=== PATIENT | female | born 1985 | race Caucasian/White ===

== ENCOUNTER 2017-06-27 23:33 | Outpatient (CLI) | payer BC ==
[~2017-06-27] VITALS: Ht 154.9 cm; Wt 64.8 kg
[2017-06-27 23:51] VITALS: BP 134/83
[2017-06-28] MEDS ORDERED: PRENATAL TABLE1 EAC3 PO (00:17)
[2017-06-28 03:51] VITALS: BP 123/84
== END 2017-06-28 04:40 | disposition home or self-care (01) ==
LOC: LDRP-OP 23:33 → 2WEST 23:34
DX: O47.1 False labor at or after 37 completed weeks of gestation (principal); Z3A.40 40 weeks gestation of pregnancy
CPT/HCPCS: 59025; G0378

== ENCOUNTER 2017-07-01 22:16 | Inpatient (IN) | payer BC ==
[~2017-07-01] VITALS: Ht 154.9 cm; Wt 66.0 kg
[~2017-07-01 22:16] MED LIST: PRENATAL TABLE1 EAC3 PO
[2017-07-01 22:38] VITALS: BP 130/83
[2017-07-02] VITALS (7 sets, daily range): BP systolic 105–133; BP diastolic 57–81
[2017-07-02 01:20] LABS: BASOPHIL COUNT 0.1 K/uL (0-0.1); EOSINOPHIL (%) 0.4 % (0-5); EOSINOPHIL COUNT 0.1 K/uL (0-0.3); HEMATOCRIT 40.5 % (36.0-46.0); IMMATURE GRANULOCYTE (%) 1.4 % (0.0-0.7); IMMATURE GRANULOCYTE COUNT 0.3 K/uL; INSTRUMENT ABS NEUTROPHIL CT 17.1 K/uL; MCH 32.8 PG (29.0-34.0); MCHC 34.6 G/DL (30.0-36.0); MCV 94.8 FL (83-99); MONOCYTE (%) 3.8 % (3-12); MONOCYTE COUNT 0.8 K/uL (0-0.8); NEUTROPHIL (%) 76.2 % (45-76); NEUTROPHIL COUNT 17.1 K/uL (1.8-6.4); PLATELET COUNT 216 K/uL (156-360); RBC DIS.WIDTH-CV 12.1 % (11.8-14.6); RBC DIS.WIDTH-SD 41.8 % (39-53); RED BLOOD COUNT 4.27 M/uL (3.80-5.20); WHITE BLOOD COUNT 22.4 K/uL (4.1-10.2)
[2017-07-02 13:02] LABS: EOSINOPHIL (%) 0 % (0-5); HEMATOCRIT 32.1 % (36.0-46.0); IMMATURE GRANULOCYTE (%) 0.6 % (0.0-0.7); IMMATURE GRANULOCYTE COUNT 0.1 K/uL; INSTRUMENT ABS NEUTROPHIL CT 19.3 K/uL; LYMPHOCYTE COUNT 1.7 K/uL (1.0-2.8); MCH 32.8 PG (29.0-34.0); MCHC 34.6 G/DL (30.0-36.0); MEAN PLAT.VOLUME 10.3 uM^3 (9.5-12.4); MONOCYTE (%) 4.5 % (3-12); NEUTROPHIL (%) 87.2 % (45-76); NEUTROPHIL COUNT 19.3 K/uL (1.8-6.4); PLATELET COUNT 178 K/uL (156-360); RBC DIS.WIDTH-CV 12.2 % (11.8-14.6); RBC DIS.WIDTH-SD 42.3 % (39-53); WHITE BLOOD COUNT 22.2 K/uL (4.1-10.2)
[2017-07-02 13:04] LABS: RED BLOOD COUNT 3.38 M/uL (3.80-5.20)
[2017-07-03 07:18] LABS: EOSINOPHIL (%) 0.3 % (0-5); HEMATOCRIT 29.8 % (36.0-46.0); IMMATURE GRANULOCYTE (%) 0.5 % (0.0-0.7); IMMATURE GRANULOCYTE COUNT 0.1 K/uL; INSTRUMENT ABS NEUTROPHIL CT 10.8 K/uL; LYMPHOCYTE COUNT 2.5 K/uL (1.0-2.8); MCH 33.6 PG (29.0-34.0); MCHC 34.2 G/DL (30.0-36.0); MEAN PLAT.VOLUME 10.3 uM^3 (9.5-12.4); MONOCYTE (%) 4.5 % (3-12); MONOCYTE COUNT 0.6 K/uL (0-0.8); NEUTROPHIL (%) 76.6 % (45-76); NEUTROPHIL COUNT 10.8 K/uL (1.8-6.4); PLATELET COUNT 151 K/uL (156-360); RBC DIS.WIDTH-CV 12.4 % (11.8-14.6); RBC DIS.WIDTH-SD 43.9 % (39-53); RED BLOOD COUNT 3.04 M/uL (3.80-5.20); WHITE BLOOD COUNT 14.1 K/uL (4.1-10.2)
[2017-07-03 07:19] VITALS: BP 131/65
[2017-07-03 16:24] VITALS: BP 127/69
[2017-07-03 19:00] VITALS: BP 143/82
[2017-07-03 23:00] VITALS: BP 124/73
[2017-07-04 02:21] VITALS: BP 122/66
[2017-07-04] MEDS ORDERED: ENDOCET 5-3251 EACH PO (08:55)
[2017-07-04] MEDS ORDERED: IBUPROFEN800 MG PO (08:55)
[2017-07-04 22:24] VITALS: BP 122/71
[2017-07-05 07:38] VITALS: BP 124/81
== END 2017-07-05 11:27 | disposition home or self-care (01) | DRG 765 ==
LOC: LDRP-OP 22:16 → 2WEST 22:17 → LDRP-OP 07-28 04:51
PROVIDERS: Advanced Practice Midwife; Obstetrics & Gynecology Obstetrics
PROC: 10D00Z1 Extraction of Products of Conception, Low, Open Approach (ICD-10-PCS; principal; 2017-07-02)
DX: O65.4 Obstructed labor due to fetopelvic disproportion, unspecified (principal); O99.02 Anemia complicating childbirth; D62 Acute posthemorrhagic anemia; O48.0 Post-term pregnancy; O63.1 Prolonged second stage (of labor); O69.81X0 Labor and delivery complicated by cord around neck, without compression, not applicable or unspecified; O62.1 Secondary uterine inertia; O32.1XX0 Maternal care for breech presentation, not applicable or unspecified; O71.81 Laceration of uterus, not elsewhere classified; Z3A.40 40 weeks gestation of pregnancy; Z37.0 Single live birth
CPT/HCPCS: 85025; 85025 91; 86850; 86900; 86901; G0378; J0690; J1100; J1885; J2175; J2274; J2405; J2540; J7050; J7120